=== PATIENT | male | born 1940 | race Caucasian/White ===

== ENCOUNTER 2018-09-14 08:03 | Emergency (ER) | payer MEDICARE, OTHER ==
[2018-09-14 08:17] VITALS: BP 147/95; PULSE 100; RESP 18; TEMP 97.7; O2SAT 99
[2018-09-14 08:43] LABS: BASOPHILS % (AUTO) 0 % (0-3); EOSINOPHILS % (AUTO) 2 % (0-9); HEMATOCRIT 42 % (39-53); LYMPHOCYTES % (AUTO) 16.7 % (10-50); MEAN CORPUSCULAR HEMOGLOBIN 26.8 pg (27.0-32.0); MEAN CORPUSCULAR HGB CONC 31.2 gm/dl (32.0-36.0); MEAN CORPUSCULAR VOLUME 86 fL (80-100); NEUTROPHILS % (AUTO) 73.8 % (37-80)
[2018-09-14 08:44] LABS: APPEARANCE,URINE Cloudy; BILIRUBIN,URINE 2+ (NEGATIVE); COLOR,URINE Red; GLUCOSE, URINE (UA) NEGATIVE (NEGATIVE); KETONES,URINE 1+ (NEGATIVE); LEUKOCYTE ESTERASE ,URINE 3+ (NEGATIVE); NITRATE,URINE NEGATIVE (NEGATIVE); OCCULT BLOOD,URINE 3+ (NEG-TRACE); PH,URINE 5.5
[2018-09-14 08:54] LABS: INR 1.02 (0.86-1.12)
[2018-09-14 08:55] LABS: CRYSTALS UNABLE (0-3 AVE/HPF); EPITHELIAL CELLS UNABLE (SQUAMOUS); ICTOTEST,URINE NEGATIVE (NEGATIVE); WBC,URINE UNABLE (0-5AV/HPF)
[2018-09-14 08:56] LABS: BACTERIA 2+ (< 1+)
[2018-09-14 08:57] LABS: CALCIUM 9.4 mg/dl (8.5-10.1); CARBON DIOXIDE 28.2 mEq/L (21-32); CREATININE 1.21 mg/dl (0.80-1.30); POTASSIUM 3.2 mMol/L (3.5-5.1)
[2018-09-14 08:57] LABS: RBC,URINE PACKED (0-3AV/HPF)
[2018-09-14] MEDS ORDERED: POTASSIUM CHLORIDE 10 MEQ TER PO ONE (09:09)
[2018-09-14] MEDS ORDERED: POTASSIUM CHLORIDE 10 MEQ TER ONE (09:12)
== END 2018-09-14 09:22 | disposition home or self-care (01) | DRG 690 ==
LOC: ED 08:03
DX: N39.0 Urinary tract infection, site not specified (principal); R31.9 Hematuria, unspecified; E87.6 Hypokalemia; R73.03 Prediabetes
CPT/HCPCS: 36415; 80048; 81001; 85025; 85610; 87088; 99282; 99283; A9270-GY